=== PATIENT | female | born 1935 | race Caucasian/White ===

== ENCOUNTER → 2016-11-26 | Outpatient (CLI) | payer MEDICARE, BC ==
--- NOTE | 2016-11-26 10:20 | REP ---
LEFT SHOULDER, COMPLETE: 11/26/2016. Clinical history: Left shoulder pain. Comparison: 08/19/2003. Findings AC joint shows narrowing with spur formation inferiorly and superiorly. The degenerative changes are slightly increased on the prior. The glenohumeral joint shows only minimal degenerative changes. There is no subluxation or dislocation. No abnormal soft-tissue calcification. Visualized ribs, scapula, humerus and clavicle without fracture. Impression: 1. 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 Minimal degenerative changes in the glenohumeral joint. No abnormal soft-tissue calcification, subluxation or other acute finding. Signed by Edward Miller MD 11/26/2016 10:24 A
--- NOTE | 2016-11-26 10:39 | REP ---
MRI study left shoulder without contrast: History: Injury 1 month ago. Left shoulder pain. Comparison left shoulder radiographs are from November 26, 2016. Technique: Axial, oblique coronal, and oblique sagittal imaging planes are utilized. T1 and T2-weighted scans were obtained in the usual fashion with and without fat saturation. MRI findings: There is a large glenohumeral joint effusion. There is a subacromial subdeltoid bursal effusion. These two communicates through a large full-thickness complete partially retracted tear of the supraspinatus tendon. There is moderate inferolateral acromion process spurring. Mild AC joint spurring is seen. There is greater tuberosity spurring and subcortical cyst formation is seen in the humeral head. The biceps tendon is in the bony bicipital groove. Increased signal intensity is seen within the tendon at its genu. The subscapularis and infraspinatus tendons appear to be intact. There is some glenohumeral chondromalacia and there is increased signal intensity consistent with fraying of the posterior articular cartilage. Some mild inferior glenoid spurring is noted. Impression: Advanced degenerative findings including a large full-thickness partially retracted complete tear of the supraspinatus tendon. A large joint effusion and subacromial deltoid bursal effusion seen. AC joint osteoarthritis. Glenohumeral spurring. Acromion process spurring. Tendinosis in the biceps tendon. Signed by Girish Mcfarland MD 11/26/2016 02:32 P
== END ==
LOC: M RAD 07:58
PROVIDERS: ATTEND Orthopaedic Surgery
DX: M19.022 Primary osteoarthritis, left elbow (principal)

== ENCOUNTER → 2017-04-08 | Outpatient (REF) | payer MEDICARE, BC ==
[2017-04-08 13:30] LABS: ALBUMIN 3.5 GM/DL (3.2-5.2); ALKALINE PHOSPHATASE 63 U/L (45-117); ALT/SGPT 25 U/L (12-78); ANION GAP 6 MEQ/L (8-16); AST/SGOT 19 U/L (15-37); BILIRUBIN,TOTAL 0.4 MG/DL (0.2-1.0); BLOOD UREA NITROGEN 16 MG/DL (7-18); CALCIUM LEVEL 8.6 MG/DL (8.8-10.2); CARBON DIOXIDE LEVEL 29 MEQ/L (21-32); CHLORIDE LEVEL 108 MEQ/L (98-107); CHOLESTEROL LEVEL 165 MG/DL (<200); CREATININE FOR GFR 0.71 MG/DL (0.55-1.02); GLOMERULAR FILTRATION RATE > 60.0 (>32); GLUCOSE, FASTING 82 MG/DL (83-110); POTASSIUM SERUM 4.2 MEQ/L (3.5-5.1); SODIUM LEVEL 143 MEQ/L (136-145); TRIGLYCERIDES LEVEL 117 MG/DL (<150)
== END ==
LOC: M LABDRAW1 11:42
PROVIDERS: ATTEND Internal Medicine
DX: E78.00 Pure hypercholesterolemia, unspecified (principal); E03.9 Hypothyroidism, unspecified; E55.9 Vitamin D deficiency, unspecified

== ENCOUNTER → 2017-04-28 | Outpatient (REF) | payer MEDICARE, BC | LOC: M LAB REF 09:12 | PROVIDERS: ATTEND Physician Assistant | DX: N39.0 Urinary tract infection, site not specified (principal) ==

== ENCOUNTER → 2017-06-12 | Outpatient (REF) | payer MEDICARE, BC | LOC: M LAB REF 12:00 | PROVIDERS: ATTEND Physician Assistant | DX: R30.0 Dysuria (principal) ==

== ENCOUNTER → 2017-07-10 | Outpatient (REF) | payer MEDICARE, BC | LOC: M LAB REF 17:03 | PROVIDERS: ATTEND Physician Assistant | DX: N39.0 Urinary tract infection, site not specified (principal) ==

== ENCOUNTER → 2017-09-19 | Outpatient (REF) | payer MEDICARE ==
[2017-09-19 16:18] LABS: MEAN CORPUSCULAR HEMOGLOBIN 30.5 pg (27.0-33.0); MEAN CORPUSCULAR HGB CONC 32.8 g/dl (32.0-36.5); MEAN CORPUSCULAR VOLUME 93.1 fl (80.0-96.0); PLATELET COUNT, AUTOMATED 221 10^3/uL (150-450); RED CELL DISTRIBUTION WIDTH 13.1 % (11.5-14.5); WHITE BLOOD COUNT 4.8 10^3/uL (4.0-10.0)
[2017-09-19 16:40] LABS: ALBUMIN 3.6 GM/DL (3.2-5.2); ALBUMIN/GLOBULIN RATIO 1.29 (1.00-1.93); ALKALINE PHOSPHATASE 69 U/L (45-117); ALT/SGPT 25 U/L (12-78); ANION GAP 7 MEQ/L (8-16); AST/SGOT 20 U/L (7-37); BILIRUBIN,TOTAL 0.5 MG/DL (0.2-1.0); BLOOD UREA NITROGEN 24 MG/DL (7-18); CALCIUM LEVEL 8.5 MG/DL (8.8-10.2); CARBON DIOXIDE LEVEL 28 MEQ/L (21-32); CHLORIDE LEVEL 107 MEQ/L (98-107); CREATININE FOR GFR 0.68 MG/DL (0.55-1.02); GLOMERULAR FILTRATION RATE > 60.0 (>32); GLUCOSE, FASTING 85 MG/DL (83-110); POTASSIUM SERUM 4.4 MEQ/L (3.5-5.1); SODIUM LEVEL 142 MEQ/L (136-145); TOTAL PROTEIN 6.4 GM/DL (6.4-8.2)
== END ==
LOC: M LABDRAW1 11:19
PROVIDERS: ATTEND Internal Medicine
DX: E55.9 Vitamin D deficiency, unspecified (principal); M81.0 Age-related osteoporosis without current pathological fracture; Z79.899 Other long term (current) drug therapy

== ENCOUNTER 2017-11-20 12:06 | Emergency (ER) | payer MEDICARE, BC ==
[2017-11-20 13:16] LABS: BASO # 0.1 10^3/uL (0.0-0.2); BASO % 0.4 % (0.0-1.0); EOS # 0.2 10^3/uL (0.0-0.50); EOS % 1.4 % (0.0-3.0); HEMATOCRIT 37.4 % (36.0-47.0); HEMOGLOBIN 12.9 g/dl (12.0-16.0); IMMATURE GRANULOCYTE # 0.1 10^3/uL (0-0); IMMATURE GRANULOCYTE % 0.4 % (0-0); LYMPH # 1.5 10^3/uL (1.5-4.5); LYMPH % 13.1 % (24.0-44.0); MEAN CORPUSCULAR HEMOGLOBIN 31.2 pg (27.0-33.0); MEAN CORPUSCULAR HGB CONC 34.5 g/dl (32.0-36.5); MEAN CORPUSCULAR VOLUME 90.3 fl (80.0-96.0); MONO # 0.6 10^3/uL (0.0-0.8); MONO % 4.9 % (0.0-5.0); NEUTROPHILS # 9.4 10^3/uL (1.8-7.7); NEUTROPHILS % 79.8 % (36.0-66.0); PLATELET COUNT, AUTOMATED 208 10^3/uL (150-450); RED BLOOD COUNT 4.14 10^6/uL (4.00-5.40); RED CELL DISTRIBUTION WIDTH 12.9 % (11.5-14.5); WHITE BLOOD COUNT 11.8 10^3/uL (4.0-10.0)
[2017-11-20] MEDS: NS 1,000 ML IV (13:25)
[2017-11-20 13:29] LABS: INR 0.92; PROTHROMBIN TIME 12.4 SECONDS (12.4-14.5)
[2017-11-20] MEDS: BISACODYL 10 MG SUPP PR (13:40)
[2017-11-20 13:51] LABS: ALBUMIN 3.6 GM/DL (3.2-5.2); ALBUMIN/GLOBULIN RATIO 0.95 (1.00-1.93); ALKALINE PHOSPHATASE 71 U/L (45-117); ALT/SGPT 25 U/L (12-78); ANION GAP 8 MEQ/L (8-16); AST/SGOT 23 U/L (7-37); BILIRUBIN,DIRECT 0.1 MG/DL (0.0-0.2); BILIRUBIN,TOTAL 0.4 MG/DL (0.2-1.0); BLOOD UREA NITROGEN 20 MG/DL (7-18); CALCIUM LEVEL 8.8 MG/DL (8.8-10.2); CARBON DIOXIDE LEVEL 26 MEQ/L (21-32); CHLORIDE LEVEL 105 MEQ/L (98-107); GLOMERULAR FILTRATION RATE > 60.0 (>32); GLUCOSE, FASTING 119 MG/DL (70-100); LIPASE 192 U/L (73-393); SODIUM LEVEL 139 MEQ/L (136-145); TOTAL PROTEIN 7.4 GM/DL (6.4-8.2)
[2017-11-20 14:09] LABS: LACTIC ACID SEPSIS PROTOCOL 2.7 MMOL/L (0.4-2.0)
[2017-11-20] MEDS: LIDOCAINE 2% JELLY 30 ML TOP (14:45)
[2017-11-20] MEDS: SOD POLYSTYRENE SULFONATE SUSP 15 GM/60 ML UD PO (15:49)
== END 2017-11-20 17:30 | disposition home or self-care (01) ==
LOC: M ED 12:06
DX: K59.00 Constipation, unspecified (principal); E78.00 Pure hypercholesterolemia, unspecified; I10 Essential (primary) hypertension; Z87.891 Personal history of nicotine dependence
CPT/HCPCS: 74021

== ENCOUNTER → 2018-01-29 | Outpatient (CLI) | payer MEDICARE, BC | LOC: M WHC 09:31 | DX: Z12.31 Encounter for screening mammogram for malignant neoplasm of breast (principal); Z78.0 Asymptomatic menopausal state; M81.0 Age-related osteoporosis without current pathological fracture; Z80.3 Family history of malignant neoplasm of breast | CPT/HCPCS: 77067 ==

== ENCOUNTER → 2018-03-24 | Outpatient (REF) | payer MEDICARE, BC ==
[2018-03-24 13:36] LABS: TOTAL 25(OH) VITAMIN D 12.7 NG/ML (30.0-100.0)
[2018-03-24 13:43] LABS: ALBUMIN 3.5 GM/DL (3.2-5.2); ALBUMIN/GLOBULIN RATIO 1.21 (1.00-1.93); ALKALINE PHOSPHATASE 67 U/L (45-117); ALT/SGPT 26 U/L (12-78); ANION GAP 5 MEQ/L (8-16); AST/SGOT 21 U/L (7-37); BILIRUBIN,TOTAL 0.3 MG/DL (0.2-1.0); BLOOD UREA NITROGEN 16 MG/DL (7-18); CALCIUM LEVEL 8.4 MG/DL (8.8-10.2); CARBON DIOXIDE LEVEL 27 MEQ/L (21-32); CHLORIDE LEVEL 112 MEQ/L (98-107); CHOLESTEROL LEVEL 172 MG/DL (<200); CHOLESTEROL RISK RATIO 3.071 (<5); CREATININE FOR GFR 0.62 MG/DL (0.55-1.30); GLOMERULAR FILTRATION RATE > 60.0 (>32); GLUCOSE, FASTING 87 MG/DL (70-100); HDL CHOLESTEROL 56 MG/DL (>40); LDL CHOLESTEROL 89.4 MG/DL (<100); MAGNESIUM LEVEL 2.2 MG/DL (1.8-2.4); NON-HDL-C 116 MG/DL; POTASSIUM SERUM 4.4 MEQ/L (3.5-5.1); SODIUM LEVEL 144 MEQ/L (136-145); TOTAL PROTEIN 6.4 GM/DL (6.4-8.2); TRIGLYCERIDES LEVEL 133 MG/DL (<150)
== END ==
LOC: M SFHCPLAZ 09:48
DX: E78.00 Pure hypercholesterolemia, unspecified (principal); I47.1 Supraventricular tachycardia; E03.9 Hypothyroidism, unspecified; E55.9 Vitamin D deficiency, unspecified; Z79.899 Other long term (current) drug therapy
CPT/HCPCS: 83735

== ENCOUNTER → 2018-04-07 | Outpatient (REF) | payer MEDICARE, BC ==
[2018-04-07 18:07] LABS: APPEARANCE, URINE MANUAL HAZY (CLEAR); BILIRUBIN, URINE MANUAL NEGATIVE (NEGATIVE); COLOR, URINE MANUAL LT YELLOW (YELLOW); GLUCOSE, URINE (UA) MANUAL NEGATIVE (NEGATIVE); KETONE, URINE MANUAL NEGATIVE (NEGATIVE); PROTEIN, URINE MANUAL TRACE mg/dL (NEGATIVE); UROBILINOGEN, URINE MANUAL NORMAL (NORMAL)
[2018-04-07 18:08] LABS: BLOOD URINE MANUAL POSITIVE (NEGATIVE); LEUKOCYTE ESTERASE, URINE MAN POSITIVE (NEGATIVE); MICROSCOPIC INDICATED? MAN YES (NO); NITRITE, URINE MANUAL POSITIVE (NEGATIVE)
[2018-04-07 18:09] LABS: WBC, URINE 40-50 /hpf (0-3)
[2018-04-07 18:11] LABS: BACTERIA, URINE MOD AMOUNT; CALCIUM OXALATE CRYSTALS,URINE SMALL AMOUNT /hpf; HYALINE CAST, URINE NONE SEEN /lpf (0-1)
[2018-04-07 18:12] LABS: SQUAMOUS EPITHELIAL CELL URINE NONE SEEN /hpf (SMALL AMT)
[2018-04-07 18:13] LABS: MICROSCOPIC EXAM PERFORMED
== END ==
LOC: M SFHCPLAZ 13:35
DX: R30.0 Dysuria (principal)
CPT/HCPCS: 81015

== ENCOUNTER → 2018-06-13 | Outpatient (CLI) | payer MEDICARE, BC ==
[2018-06-13 13:41] LABS: BASO % 0.4 % (0.0-1.0); EOS % 0.4 % (0.0-3.0); HEMATOCRIT 33.5 % (36.0-47.0); HEMOGLOBIN 11.3 g/dl (12.0-15.5); IMMATURE GRANULOCYTE % 0.3 % (0-3.0); MEAN CORPUSCULAR HEMOGLOBIN 30.7 pg (27.0-33.0); MEAN CORPUSCULAR HGB CONC 33.7 g/dl (32.0-36.5); MONO % 11.3 % (0.0-5.0); NEUTROPHILS # 6.8 10^3/uL (1.8-7.7); NEUTROPHILS % 76.6 % (36.0-66.0); PLATELET COUNT, AUTOMATED 185 10^3/uL (150-450); RED BLOOD COUNT 3.68 10^6/uL (4.00-5.40); RED CELL DISTRIBUTION WIDTH 13.4 % (11.5-14.5); WHITE BLOOD COUNT 8.9 10^3/uL (4.0-10.0)
[2018-06-13 14:21] LABS: ALBUMIN/GLOBULIN RATIO 0.86 (1.00-1.93); ALKALINE PHOSPHATASE 97 U/L (45-117); ALT/SGPT 77 U/L (12-78); ANION GAP 9 MEQ/L (8-16); AST/SGOT 65 U/L (7-37); BILIRUBIN,TOTAL 0.6 MG/DL (0.2-1.0); BLOOD UREA NITROGEN 17 MG/DL (7-18); CALCIUM LEVEL 8.3 MG/DL (8.8-10.2); CARBON DIOXIDE LEVEL 28 MEQ/L (21-32); CHLORIDE LEVEL 99 MEQ/L (98-107); CREATININE FOR GFR 0.83 MG/DL (0.55-1.30); GLOMERULAR FILTRATION RATE > 60.0 (>32); GLUCOSE, FASTING 88 MG/DL (70-100); POTASSIUM SERUM 4.1 MEQ/L (3.5-5.1); SODIUM LEVEL 136 MEQ/L (136-145); TOTAL PROTEIN 6.5 GM/DL (6.4-8.2)
== END ==
LOC: M WUC 10:33
DX: R50.9 Fever, unspecified (principal)
CPT/HCPCS: 80053

== ENCOUNTER 2018-08-01 07:02 | Emergency (ER) | payer MEDICARE, BC ==
[2018-08-01] MEDS: ADACEL/BOOSTRIX VACCINE (DIPHTH/PERTUSS/ACELL/TETANUS)0.5ML SYR (90715) IM (07:51)
== END 2018-08-01 08:23 | disposition home or self-care (01) ==
LOC: M ED 07:02
DX: S01.01XA Laceration without foreign body of scalp, initial encounter (principal); W06.XXXA Fall from bed, initial encounter; Y92.092 Bedroom in other non-institutional residence as the place of occurrence of the external cause; M79.7 Fibromyalgia; E78.9 Disorder of lipoprotein metabolism, unspecified; E07.9 Disorder of thyroid, unspecified; Z86.79 Personal history of other diseases of the circulatory system; Z88.2 Allergy status to sulfonamides; Z79.899 Other long term (current) drug therapy
CPT/HCPCS: 90715

== ENCOUNTER → 2018-10-02 | Outpatient (REF) | payer MEDICARE, BC ==
[2018-10-02 10:36] LABS: HEMATOCRIT 36.9 % (36.0-47.0); HEMOGLOBIN 12.1 g/dl (12.0-15.5); MEAN CORPUSCULAR HGB CONC 32.8 g/dl (32.0-36.5); MEAN CORPUSCULAR VOLUME 91.3 fl (80.0-96.0); PLATELET COUNT, AUTOMATED 202 10^3/uL (150-450); RED BLOOD COUNT 4.04 10^6/uL (4.00-5.40); RED CELL DISTRIBUTION WIDTH 13.2 % (11.5-14.5); WHITE BLOOD COUNT 4.9 10^3/uL (4.0-10.0)
[2018-10-02 10:42] LABS: ALBUMIN 3.6 GM/DL (3.2-5.2); ALBUMIN/GLOBULIN RATIO 1.24 (1.00-1.93); ALKALINE PHOSPHATASE 60 U/L (45-117); ALT/SGPT 27 U/L (12-78); ANION GAP 6 MEQ/L (8-16); AST/SGOT 27 U/L (7-37); BILIRUBIN,TOTAL 0.3 MG/DL (0.2-1.0); BLOOD UREA NITROGEN 19 MG/DL (7-18); CALCIUM LEVEL 8.3 MG/DL (8.8-10.2); CARBON DIOXIDE LEVEL 29 MEQ/L (21-32); CHLORIDE LEVEL 107 MEQ/L (98-107); CREATININE FOR GFR 0.75 MG/DL (0.55-1.30); GLOMERULAR FILTRATION RATE > 60.0 (>32); GLUCOSE, FASTING 89 MG/DL (70-100); MAGNESIUM LEVEL 2.1 MG/DL (1.8-2.4); POTASSIUM SERUM 4.1 MEQ/L (3.5-5.1); SODIUM LEVEL 142 MEQ/L (136-145); TOTAL PROTEIN 6.5 GM/DL (6.4-8.2)
[2018-10-02 12:55] LABS: TOTAL 25(OH) VITAMIN D 29.2 NG/ML (30.0-100.0)
== END ==
LOC: M LABDRAW1 08:03
DX: I47.1 Supraventricular tachycardia (principal); E55.9 Vitamin D deficiency, unspecified; Z51.81 Encounter for therapeutic drug level monitoring; Z79.899 Other long term (current) drug therapy; Z86.010 Personal history of colon polyps
CPT/HCPCS: 83735

== ENCOUNTER → 2018-10-06 | Outpatient (REF) | payer MEDICARE, BC | LOC: M SFHCPLAZ 12:06 | DX: R30.0 Dysuria (principal); Z53.8 Procedure and treatment not carried out for other reasons ==

== ENCOUNTER → 2018-10-07 | Outpatient (REF) | payer MEDICARE, BC ==
[~2018-10-07] MED LIST: AMIT25TA; BACI500O8 TOP; FOSA70TA PO; METO1TAB32; SIMV20TA2; SYNT50TA
[2018-10-07 16:48] LABS: APPEARANCE, URINE HAZY (CLEAR); BACTERIA, URINE AUTO 1+ (NEGATIVE); BILIRUBIN, URINE AUTO NEGATIVE (NEGATIVE); BLOOD, URINE BLOOD NEGATIVE (NEGATIVE); COLOR, URINE YELLOW (YELLOW); GLUCOSE, URINE (UA) AUTO NEGATIVE (NEGATIVE); KETONE, URINE AUTO NEGATIVE (NEGATIVE); LEUKOCYTE ESTERASE, URINE AUTO 2+ (NEGATIVE); NITRITE, URINE AUTO POSITIVE (NEGATIVE); PROTEIN, URINE AUTO NEGATIVE (NEGATIVE); RBC, URINE AUTO 3 /HPF (0-3); SPECIFIC GRAVITY URINE AUTO 1.008 (1.002-1.035); SQUAMOUS EPITHELIAL CELL UR AU 0 /HPF (0-6); UROBILINOGEN, URINE AUTO 0.2 mg/dL (0.0-2.0); WBC, URINE AUTO 10 /HPF (0-3)
== END ==
LOC: M SFHCPLAZ 12:46
PROVIDERS: ATTEND Internal Medicine
DX: R30.0 Dysuria (principal)

== ENCOUNTER 2019-02-15 20:29 | Emergency (ER) | payer MEDICARE, BC ==
[~2019-02-15] VITALS: Ht 165.1 cm; Wt 56.8 kg
[2019-02-15 21:08] LABS: BASO # 0.1 10^3/uL (0.0-0.2); BASO % 0.8 % (0.0-1.0); EOS # 0.4 10^3/uL (0.0-0.50); EOS % 6.2 % (0.0-3.0); HEMATOCRIT 34.1 % (36.0-47.0); HEMOGLOBIN 11.3 g/dl (12.0-15.5); LYMPH # 1.7 10^3/uL (1.5-4.5); LYMPH % 27.3 % (24.0-44.0); MEAN CORPUSCULAR HEMOGLOBIN 30.7 pg (27.0-33.0); MEAN CORPUSCULAR HGB CONC 33.1 g/dl (32.0-36.5); MEAN CORPUSCULAR VOLUME 92.7 fl (80.0-96.0); MONO # 0.6 10^3/uL (0.0-0.8); MONO % 9.3 % (0.0-5.0); NEUTROPHILS # 3.4 10^3/uL (1.8-7.7); NEUTROPHILS % 56.1 % (36.0-66.0); PLATELET COUNT, AUTOMATED 234 10^3/uL (150-450); RED BLOOD COUNT 3.68 10^6/uL (4.00-5.40); WHITE BLOOD COUNT 6.1 10^3/uL (4.0-10.0)
[2019-02-15 21:36] LABS: BLOOD UREA NITROGEN 24 MG/DL (7-18); CALCIUM LEVEL 8.3 MG/DL (8.8-10.2); CARBON DIOXIDE LEVEL 21 MEQ/L (21-32); CHLORIDE LEVEL 111 MEQ/L (98-107); CPK CREATINE PHOSPHOKINASE 110 U/L (26-192); CREATININE FOR GFR 0.79 MG/DL (0.55-1.30); GLOMERULAR FILTRATION RATE > 60.0 (>32); GLUCOSE, FASTING 101 MG/DL (70-100); MB/CK RELATIVE INDEX 2.64 (< OR =4); POTASSIUM SERUM 4.3 MEQ/L (3.5-5.1); SODIUM LEVEL 142 MEQ/L (136-145); TROPONIN I < 0.02 NG/ML (< 0.10)
[2019-02-15] MEDS ORDERED: KETOROLAC 30 MG/ML VIAL (J1885) IV ONE (21:45)
[2019-02-15] MEDS ORDERED: NS 500 ML IV ONE (21:45)
[2019-02-15 21:59] LABS: INR 0.93; PROTHROMBIN TIME 12.6 SECONDS (12.1-14.4)
[2019-02-15 22:00] LABS: PARTIAL THROMBOPLASTIN TIME 38.1 SECONDS (25.4-37.6)
[2019-02-15] MEDS ORDERED: ISOVUE-370 76% 100ML VIAL (Q9967) As Ordered ONE (22:00)
--- NOTE | 2019-02-15 22:43 | REPVR ---
EXAM: CT Angiography Chest With Contrast EXAM DATE/TIME: 02/15/2019 10:04 PM CLINICAL HISTORY: 83 years old, female; Signs and symptoms; Shortness of breath; Additional info: Dysp/cp TECHNIQUE: Imaging protocol: Axial computed tomographic angiography images of the chest with intravenous contrast using CT angiography protocol. Coronal and sagittal reformatted images were created and reviewed. 3D rendering: MIP reconstructed images were created and reviewed. Radiation optimization: All CT scans at this facility use at least one of these dose optimization techniques: automated exposure control; mA and/or kV adjustment per patient size (includes targeted exams where dose is matched to clinical indication); or iterative reconstruction. Contrast material: ISOVUE 370; Contrast volume: 75 ml; Contrast route: IV; COMPARISON: CR CHEST 2 VIEW 06/13/2018 10:39 AM FINDINGS: Pulmonary arteries: There are no pulmonary emboli. Aorta: The aorta demonstrates mild atherosclerotic calcification. There is no aortic dissection or aneurysm. Lungs: There is bibasilar compressive atelectasis. Mild bronchiectasis left lower lobe. Calcified granuloma left lower lobe. Pleural space: Pleural thickening left lower lobe. Bilateral apical pleural-parenchymal scarring. Heart: Normal. No cardiomegaly. No pericardial effusion. Mediastinum: Small sliding hiatal hernia. Lymph nodes: Calcified left hilar lymph nodes. Bones/joints: Deformity right clavicle related to prior healed fracture. The spine demonstrates mild degenerative changes. Osteoporosis. Age-indeterminate compression deformities in the midthoracic spine. Soft tissues: Unremarkable. IMPRESSION: 1. There is no aortic dissection or aneurysm. 2. There are no pulmonary emboli. 3. Prior intrathoracic granulomatous infection. Electronically signed by: Christopher Arroyo On 02/15/2019 22:43:20 PM
[2019-02-15 22:48] LABS: ABG BASE EXCESS -1.5 (-2.0-2.0); ABG HCO3 21.9 MEQ/L (22.0-26.0); ABG O2 SATURATION 97.7 % (95.0-99.0); ABG PARTIAL PRESSURE CO2 32.5 mmHg (35.0-45.0); ABG PARTIAL PRESSURE O2 98.4 mmHg (75.0-100.0); ABG STANDARD HCO3 23.2 MEQ/L (22.0-26.0); ABG TOTAL CO2 22.9 MEQ/L (23.0-31.0); ABG pH (ARTERIAL) 7.447 UNITS (7.350-7.450)
[2019-02-15] MEDS ORDERED: MORPHINE 4 MG/ML 1ML VIAL/SYRINGE (J2270) IV ONE (23:45)
[2019-02-16] MEDS ORDERED: traMADol 50 MG TAB (BULK 4 TAB ED) PO ONE
[2019-02-16 00:12] VITALS: BP 115/60
--- NOTE | 2019-02-16 14:41 | ECGEPIP ---
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
== END 2019-02-16 00:27 | disposition home or self-care (01) ==
LOC: M ED 20:29
DX: R07.89 Other chest pain (principal); E86.0 Dehydration; E03.9 Hypothyroidism, unspecified; I47.1 Supraventricular tachycardia; M79.7 Fibromyalgia; K58.9 Irritable bowel syndrome, unspecified; Z79.890 Hormone replacement therapy; Z79.899 Other long term (current) drug therapy; Z88.1 Allergy status to other antibiotic agents; Z88.2 Allergy status to sulfonamides
CPT/HCPCS: 36600; 71275; 80048; 82550; 82553; 82803; 84484; 85025; 85610; 85730; 93005; 93041; 96361; 96374; 96375; 99285; J1885; J2270; Q9967

== ENCOUNTER → 2019-04-07 | Outpatient (REF) | payer MEDICARE, BC ==
[~2019-04-07] MED LIST changes: -AMIT25TA; +AMIT25TA PO; +BENE1POW5 PO; -METO1TAB32; +METO1TAB32 PO; +MILKSUS3 PO; +MIRA3350 PO; -SIMV20TA2; +SIMV20TA2 PO; -SYNT50TA; +SYNT50TA PO
[2019-04-07 12:17] LABS: ALBUMIN 3.3 GM/DL (3.2-5.2); ALT/SGPT 25 U/L (12-78); BILIRUBIN,TOTAL 0.4 MG/DL (0.2-1.0); BLOOD UREA NITROGEN 20 MG/DL (7-18); CALCIUM LEVEL 8.8 MG/DL (8.8-10.2); CARBON DIOXIDE LEVEL 28 MEQ/L (21-32); CHLORIDE LEVEL 109 MEQ/L (98-107); CHOLESTEROL LEVEL 170 MG/DL (<200); CHOLESTEROL RISK RATIO 2.615 (<5); CREATININE FOR GFR 0.72 MG/DL (0.55-1.30); GLOMERULAR FILTRATION RATE > 60.0 (>32); GLUCOSE, FASTING 82 MG/DL (70-100); HDL CHOLESTEROL 65 MG/DL (>40); LDL CHOLESTEROL 87 MG/DL (<100); MAGNESIUM LEVEL 2.3 MG/DL (1.8-2.4); NON-HDL-C 105 MG/DL; POTASSIUM SERUM 4.3 MEQ/L (3.5-5.1); SODIUM LEVEL 142 MEQ/L (136-145); THYROID STIMULATING HORMONE 0.998 uIU/ML (0.358-3.740); TOTAL PROTEIN 6.5 GM/DL (6.4-8.2); TRIGLYCERIDES LEVEL 92 MG/DL (<150)
== END ==
LOC: M LABDRAW1 09:23
PROVIDERS: ATTEND Internal Medicine
DX: E03.9 Hypothyroidism, unspecified (principal); E78.00 Pure hypercholesterolemia, unspecified

== ENCOUNTER → 2019-06-09 | Outpatient (REF) | payer MEDICARE, BC ==
[~2019-06-09] MED LIST changes: -SIMV20TA2 PO; +SIMV20TA22 PO
[2019-06-09 19:08] LABS: APPEARANCE, URINE HAZY (CLEAR); BACTERIA, URINE AUTO 1+ (NEGATIVE); BILIRUBIN, URINE AUTO NEGATIVE (NEGATIVE); BLOOD, URINE BLOOD NEGATIVE (NEGATIVE); COLOR, URINE YELLOW (YELLOW); GLUCOSE, URINE (UA) AUTO NEGATIVE (NEGATIVE); KETONE, URINE AUTO NEGATIVE (NEGATIVE); LEUKOCYTE ESTERASE, URINE AUTO 2+ (NEGATIVE); MUCUS, URINE SMALL (NEGATIVE); NITRITE, URINE AUTO POSITIVE (NEGATIVE); PROTEIN, URINE AUTO NEGATIVE (NEGATIVE); RBC, URINE AUTO 2 /HPF (0-3); SPECIFIC GRAVITY URINE AUTO 1.009 (1.002-1.035); SQUAMOUS EPITHELIAL CELL UR AU 0 /HPF (0-6); UROBILINOGEN, URINE AUTO 0.2 mg/dL (0.0-2.0); WBC, URINE AUTO 38 /HPF (0-3)
== END ==
LOC: M SFHCPLAZ 15:38
PROVIDERS: ATTEND Internal Medicine
DX: R30.0 Dysuria (principal)
CPT/HCPCS: 81001; 87088; 87186; G0463

== ENCOUNTER → 2019-07-21 | Outpatient (REF) | payer MEDICARE, BC ==
[2019-07-21 11:37] LABS: APPEARANCE, URINE CLEAR (CLEAR); BACTERIA, URINE AUTO 1+ (NEGATIVE); BILIRUBIN, URINE AUTO NEGATIVE (NEGATIVE); BLOOD, URINE BLOOD 1+ (NEGATIVE); COLOR, URINE YELLOW (YELLOW); GLUCOSE, URINE (UA) AUTO NEGATIVE (NEGATIVE); KETONE, URINE AUTO NEGATIVE (NEGATIVE); LEUKOCYTE ESTERASE, URINE AUTO 1+ (NEGATIVE); NITRITE, URINE AUTO POSITIVE (NEGATIVE); PROTEIN, URINE AUTO NEGATIVE (NEGATIVE); RBC, URINE AUTO 2 /HPF (0-3); SPECIFIC GRAVITY URINE AUTO 1.006 (1.002-1.035); SQUAMOUS EPITHELIAL CELL UR AU 0 /HPF (0-6); UROBILINOGEN, URINE AUTO 0.2 mg/dL (0.0-2.0); WBC, URINE AUTO 12 /HPF (0-3)
== END ==
LOC: M SFHCPLAZ 09:16
PROVIDERS: ATTEND Internal Medicine
DX: R30.0 Dysuria (principal)

== ENCOUNTER → 2019-08-10 | Outpatient (REF) | payer MEDICARE, BC ==
[~2019-08-10] MED LIST changes: +SIMV20TA2 PO; -SIMV20TA22 PO
[2019-08-10 20:55] LABS: APPEARANCE, URINE CLOUDY (CLEAR); BACTERIA, URINE AUTO 1+ (NEGATIVE); BILIRUBIN, URINE AUTO NEGATIVE (NEGATIVE); BLOOD, URINE BLOOD 1+ (NEGATIVE); CALCIUM OXALATE CRYSTALS LARGE; COLOR, URINE YELLOW (YELLOW); GLUCOSE, URINE (UA) AUTO NEGATIVE (NEGATIVE); KETONE, URINE AUTO NEGATIVE (NEGATIVE); LEUKOCYTE ESTERASE, URINE AUTO 3+ (NEGATIVE); MUCUS, URINE SMALL (NEGATIVE); NITRITE, URINE AUTO POSITIVE (NEGATIVE); PROTEIN, URINE AUTO NEGATIVE (NEGATIVE); RBC, URINE AUTO 3 /HPF (0-3); SPECIFIC GRAVITY URINE AUTO 1.015 (1.002-1.035); SQUAMOUS EPITHELIAL CELL UR AU 0 /HPF (0-6); UROBILINOGEN, URINE AUTO 0.2 mg/dL (0.0-2.0); WBC, URINE AUTO 156 /HPF (0-3)
== END ==
LOC: M SFHCPLAZ 19:42
PROVIDERS: ATTEND Family Medicine
DX: R30.0 Dysuria (principal)

== ENCOUNTER → 2019-12-09 | Outpatient (CLI) | payer MEDICARE, BC ==
[~2019-12-09] MED LIST changes: -SIMV20TA2 PO; +SIMV20TA22 PO
[2019-12-09 10:40] LABS: HEMATOCRIT 40.3 % (36.0-47.0); HEMOGLOBIN 13.2 g/dl (12.0-15.5); MEAN CORPUSCULAR HEMOGLOBIN 30.3 pg (27.0-33.0); MEAN CORPUSCULAR HGB CONC 32.8 g/dl (32.0-36.5); MEAN CORPUSCULAR VOLUME 92.6 fl (80.0-96.0); PLATELET COUNT, AUTOMATED 199 10^3/uL (150-450); RED BLOOD COUNT 4.35 10^6/uL (4.00-5.40); WHITE BLOOD COUNT 4.7 10^3/uL (4.0-10.0)
[2019-12-09 11:24] LABS: ALBUMIN 3.7 GM/DL (3.2-5.2); ALT/SGPT 30 U/L (12-78); BILIRUBIN,TOTAL 0.5 MG/DL (0.2-1.0); BLOOD UREA NITROGEN 23 MG/DL (7-18); CARBON DIOXIDE LEVEL 29 MEQ/L (21-32); CHLORIDE LEVEL 107 MEQ/L (98-107); CHOLESTEROL LEVEL 201 MG/DL (<200); CHOLESTEROL RISK RATIO 3.045 (<5); CREATININE FOR GFR 0.72 MG/DL (0.55-1.30); GLOMERULAR FILTRATION RATE > 60.0 (>32); GLUCOSE, FASTING 76 MG/DL (70-100); HDL CHOLESTEROL 66 MG/DL (>40); LDL CHOLESTEROL 115 MG/DL (<100); NON-HDL-C 135 MG/DL; POTASSIUM SERUM 4.4 MEQ/L (3.5-5.1); SODIUM LEVEL 141 MEQ/L (136-145); TOTAL 25(OH) VITAMIN D 26.4 NG/ML (30.0-100.0); TOTAL PROTEIN 6.8 GM/DL (6.4-8.2); TRIGLYCERIDES LEVEL 102 MG/DL (<150)
== END ==
LOC: M PLALAB 08:22
PROVIDERS: ATTEND Internal Medicine
DX: M79.7 Fibromyalgia (principal); E78.00 Pure hypercholesterolemia, unspecified; E55.9 Vitamin D deficiency, unspecified; M81.0 Age-related osteoporosis without current pathological fracture; E03.9 Hypothyroidism, unspecified

== ENCOUNTER → 2020-05-09 | Outpatient (REF) | payer MEDICARE, BC ==
[2020-05-09 14:27] LABS: ALBUMIN 3.5 GM/DL (3.2-5.2); ALT/SGPT 32 U/L (12-78); BILIRUBIN,TOTAL 0.4 MG/DL (0.2-1.0); BLOOD UREA NITROGEN 20 MG/DL (7-18); CALCIUM LEVEL 8.8 MG/DL (8.8-10.2); CARBON DIOXIDE LEVEL 27 MEQ/L (21-32); CHLORIDE LEVEL 108 MEQ/L (98-107); CHOLESTEROL LEVEL 186 MG/DL (<200); CHOLESTEROL RISK RATIO 2.695 (<5); CREATININE FOR GFR 0.83 MG/DL (0.55-1.30); GLOMERULAR FILTRATION RATE > 60.0 (>32); GLUCOSE, FASTING 81 MG/DL (70-100); HDL CHOLESTEROL 69 MG/DL (>40); LDL CHOLESTEROL 102 MG/DL (<100); NON-HDL-C 117 MG/DL; POTASSIUM SERUM 4.3 MEQ/L (3.5-5.1); SODIUM LEVEL 141 MEQ/L (136-145); TOTAL PROTEIN 6.8 GM/DL (6.4-8.2); TRIGLYCERIDES LEVEL 75 MG/DL (<150)
== END ==
LOC: M PLALAB 08:21
PROVIDERS: ATTEND Internal Medicine
DX: E78.00 Pure hypercholesterolemia, unspecified (principal)

== ENCOUNTER → 2020-11-14 | Outpatient (REF) | payer MEDICARE, BC ==
[~2020-11-14] MED LIST changes: -AMIT25TA PO; +AMIT25TA17 PO
[2020-11-14 17:30] LABS: HEMATOCRIT 38.1 % (36.0-47.0); HEMOGLOBIN 12.6 g/dl (12.0-15.5); MEAN CORPUSCULAR HEMOGLOBIN 30.5 pg (27.0-33.0); MEAN CORPUSCULAR HGB CONC 33.1 g/dl (32.0-36.5); MEAN CORPUSCULAR VOLUME 92.3 fl (80.0-96.0); PLATELET COUNT, AUTOMATED 205 10^3/uL (150-450); RED BLOOD COUNT 4.13 10^6/uL (4.00-5.40); WHITE BLOOD COUNT 5.8 10^3/uL (4.0-10.0)
[2020-11-14 18:05] LABS: ALBUMIN 3.7 GM/DL (3.2-5.2); ALT/SGPT 28 U/L (12-78); BILIRUBIN,TOTAL 0.5 MG/DL (0.2-1.0); BLOOD UREA NITROGEN 20 MG/DL (7-18); CALCIUM LEVEL 9.7 MG/DL (8.8-10.2); CARBON DIOXIDE LEVEL 33 MEQ/L (21-32); CHLORIDE LEVEL 106 MEQ/L (98-107); GLOMERULAR FILTRATION RATE > 60.0 (>32); GLUCOSE, FASTING 75 MG/DL (70-100); POTASSIUM SERUM 4.7 MEQ/L (3.5-5.1); SODIUM LEVEL 141 MEQ/L (136-145); TOTAL 25(OH) VITAMIN D 24.3 NG/ML (30.0-100.0); TOTAL PROTEIN 6.7 GM/DL (6.4-8.2)
== END ==
LOC: M SFHCPLAZ 15:44
PROVIDERS: ATTEND Internal Medicine
DX: K58.9 Irritable bowel syndrome, unspecified (principal); E78.00 Pure hypercholesterolemia, unspecified; E03.9 Hypothyroidism, unspecified; M81.0 Age-related osteoporosis without current pathological fracture
CPT/HCPCS: 36415; 80053; 82306; 84443; 85027; G0463

== ENCOUNTER → 2021-01-16 | Outpatient (REF) | payer MEDICARE, BC ==
[2021-01-16 18:25] LABS: APPEARANCE, URINE MANUAL HAZY (CLEAR); COLOR, URINE MANUAL LT YELLOW (YELLOW)
[2021-01-16 18:26] LABS: BILIRUBIN, URINE MANUAL NEGATIVE (NEGATIVE); BLOOD URINE MANUAL NEGATIVE (NEGATIVE); GLUCOSE, URINE (UA) MANUAL NEGATIVE (NEGATIVE); KETONE, URINE MANUAL NEGATIVE (NEGATIVE); LEUKOCYTE ESTERASE, URINE MAN POSITIVE (NEGATIVE); NITRITE, URINE MANUAL POSITIVE (NEGATIVE); PH,URINE MAN 5.5 UNITS (5.0 - 7.0); PROTEIN, URINE MANUAL NEGATIVE (NEGATIVE); SPECIFIC GRAVITY,URINE MANUAL 1.025 (1.002-1.035); UROBILINOGEN, URINE MANUAL NORMAL (NORMAL)
[2021-01-16 20:00] LABS: BACTERIA, URINE LARGE AMOUNT; RBC, URINE 0-1 /hpf (0-3); SQUAMOUS EPITHELIAL CELL URINE SMALL AMOUNT /hpf (SMALL AMT)
[2021-01-16 20:01] LABS: HYALINE CAST, URINE NONE SEEN /lpf (0-1)
== END ==
LOC: M SFHCPLAZ 16:56
PROVIDERS: ATTEND Internal Medicine
DX: R30.0 Dysuria (principal)

== ENCOUNTER → 2021-09-27 | Outpatient (CLI) | payer MEDICARE, BC ==
--- NOTE | 2021-09-27 14:14 | REPVR ---
PROCEDURE INFORMATION: Exam: CT Head Without Contrast Exam date and time: 09/27/2021 10:04 AM Age: 86 years old Clinical indication: Injury or trauma; Fall; Swelling (edema); Additional info: Head injury TECHNIQUE: Imaging protocol: Computed tomography of the head without contrast. Radiation optimization: All CT scans at this facility use at least one of these dose optimization techniques: automated exposure control; mA and/or kV adjustment per patient size (includes targeted exams where dose is matched to clinical indication); or iterative reconstruction. COMPARISON: CT Head without contrast 08/01/2018 7:10 AM FINDINGS: Brain: There is no acute intracranial hemorrhage or mass effect. Moderate diffuse volume loss is within the range of normal for patient age. There are small vessel ischemic changes within the periventricular and subcortical white matter, but the normal lovelace-white matter delineation is maintained. Cerebral ventricles: No ventriculomegaly. Paranasal sinuses: There is polypoid mucosal thickening within the right sphenoid sinus. Mastoid air cells: Visualized mastoid air cells are well aerated. Bones/joints: Unremarkable. No acute fracture. Soft tissues: Unremarkable. IMPRESSION: No acute hemorrhage or calvarial fracture. Electronically signed by: Yany Anthony On 09/27/2021 14:13:57 PM
== END ==
LOC: M PLAIMG 09:45
PROVIDERS: ATTEND Internal Medicine
DX: S09.90XA Unspecified injury of head, initial encounter (principal)

== ENCOUNTER 2021-10-08 20:48 | Emergency (ER) | payer MEDICARE, BC ==
[~2021-10-08] VITALS: Ht 165.1 cm; Wt 57.7 kg
[2021-10-08] MEDS ORDERED: MAGN400C PO (21:04)
[2021-10-08] MEDS ORDERED: IBUPROFEN 600MG TAB PO ONE (21:55)
[2021-10-09 00:16] VITALS: BP 125/62
== END 2021-10-09 00:18 | disposition home or self-care (01) ==
LOC: M ED 20:48
DX: S80.12XA Contusion of left lower leg, initial encounter (principal); W01.0XXA Fall on same level from slipping, tripping and stumbling without subsequent striking against object, initial encounter; Y92.22 Religious institution as the place of occurrence of the external cause; I47.1 Supraventricular tachycardia; E07.9 Disorder of thyroid, unspecified; E78.9 Disorder of lipoprotein metabolism, unspecified; E55.9 Vitamin D deficiency, unspecified; M81.0 Age-related osteoporosis without current pathological fracture; Z79.899 Other long term (current) drug therapy; Z79.890 Hormone replacement therapy; Z88.1 Allergy status to other antibiotic agents; Z88.2 Allergy status to sulfonamides

== ENCOUNTER → 2021-10-11 | Outpatient (CLI) | payer MEDICARE, BC ==
[~2021-10-11] MED LIST changes: +MAGN400C PO
[2021-10-11 14:24] LABS: ALBUMIN 3.7 GM/DL (3.2-5.2); ALT/SGPT 27 U/L (12-78); BILIRUBIN,TOTAL 0.3 MG/DL (0.2-1.0); BLOOD UREA NITROGEN 18 MG/DL (7-18); CALCIUM LEVEL 9.1 MG/DL (8.8-10.2); CARBON DIOXIDE LEVEL 29 MEQ/L (21-32); CHLORIDE LEVEL 108 MEQ/L (98-107); CHOLESTEROL LEVEL 189 MG/DL (<200); CREATININE FOR GFR 0.69 MG/DL (0.55-1.30); GLOMERULAR FILTRATION RATE > 60.0 (>32); GLUCOSE, FASTING 94 MG/DL (70-100); HDL CHOLESTEROL 70 MG/DL (>40); LDL CHOLESTEROL 97 MG/DL (<100); NON-HDL-C 119 MG/DL; POTASSIUM SERUM 4.6 MEQ/L (3.5-5.1); SODIUM LEVEL 141 MEQ/L (136-145); TOTAL PROTEIN 7.1 GM/DL (6.4-8.2); TRIGLYCERIDES LEVEL 110 MG/DL (<150)
== END ==
LOC: M PLALAB 11:39
PROVIDERS: ATTEND Internal Medicine
DX: E78.00 Pure hypercholesterolemia, unspecified (principal); E03.9 Hypothyroidism, unspecified

== ENCOUNTER → 2022-04-11 | Outpatient (REF) | payer MEDICARE, BC | LOC: M SFHCPLAZ 14:41 | PROVIDERS: ATTEND Internal Medicine | DX: E78.00 Pure hypercholesterolemia, unspecified (principal); E55.9 Vitamin D deficiency, unspecified; Z86.010 Personal history of colon polyps; Z11.59 Encounter for screening for other viral diseases ==

== ENCOUNTER → 2022-04-11 | Outpatient (CLI) | payer MEDICARE, BC ==
[2022-04-11 18:08] LABS: BASO # 0.1 10^3/uL (0.0-0.2); BASO % 1.1 % (0.0-1.0); EOS # 0.3 10^3/uL (0.0-0.5); EOS % 5.5 % (0.0-3.0); HEMATOCRIT 38.4 % (36.0-47.0); HEMOGLOBIN 12.4 g/dl (12.0-15.5); LYMPH # 1.5 10^3/uL (1.5-5.0); LYMPH % 30.5 % (24.0-44.0); MEAN CORPUSCULAR HEMOGLOBIN 29.8 pg (27.0-33.0); MEAN CORPUSCULAR HGB CONC 32.3 g/dl (32.0-36.5); MEAN CORPUSCULAR VOLUME 92.3 fl (80.0-96.0); MONO # 0.4 10^3/uL (0.0-0.8); MONO % 8.4 % (2.0-8.0); NEUTROPHILS # 2.6 10^3/uL (1.5-8.5); NEUTROPHILS % 54.3 % (36.0-66.0); PLATELET COUNT, AUTOMATED 212 10^3/uL (150-450); RED BLOOD COUNT 4.16 10^6/uL (4.00-5.40); WHITE BLOOD COUNT 4.8 10^3/uL (4.0-10.0)
[2022-04-11 18:35] LABS: ALBUMIN 3.6 GM/DL (3.2-5.2); ALT/SGPT 28 U/L (12-78); BILIRUBIN,TOTAL 0.3 MG/DL (0.2-1.0); BLOOD UREA NITROGEN 23 MG/DL (7-18); CALCIUM LEVEL 9.4 MG/DL (8.8-10.2); CARBON DIOXIDE LEVEL 28 MEQ/L (21-32); CHLORIDE LEVEL 109 MEQ/L (98-107); CREATININE FOR GFR 0.78 MG/DL (0.55-1.30); GLOMERULAR FILTRATION RATE > 60.0 (>32); GLUCOSE, FASTING 99 MG/DL (70-100); POTASSIUM SERUM 4.5 MEQ/L (3.5-5.1); SODIUM LEVEL 143 MEQ/L (136-145); TOTAL PROTEIN 6.6 GM/DL (6.4-8.2)
[2022-04-11 18:46] LABS: TOTAL 25(OH) VITAMIN D 30.4 NG/ML (30.0-100.0)
== END ==
LOC: M PLALAB 15:16
PROVIDERS: ATTEND Internal Medicine
DX: E78.00 Pure hypercholesterolemia, unspecified (principal); E55.9 Vitamin D deficiency, unspecified; Z86.010 Personal history of colon polyps; Z11.59 Encounter for screening for other viral diseases; Z79.899 Other long term (current) drug therapy

== ENCOUNTER → 2022-08-03 | Outpatient (CLI) | payer MEDICARE, BC ==
[~2022-08-03] MED LIST changes: +ALEN70TA87 PO; -FOSA70TA PO
[2022-08-03 13:46] LABS: HEMATOCRIT 39.7 % (36.0-47.0); HEMOGLOBIN 12.7 g/dl (12.0-15.5); RED BLOOD COUNT 4.21 10^6/uL (4.00-5.40)
[2022-08-03 13:47] LABS: MEAN CORPUSCULAR HEMOGLOBIN 30.2 pg (27.0-33.0); MEAN CORPUSCULAR VOLUME 94.3 fl (80.0-96.0); PLATELET COUNT, AUTOMATED 209 10^3/uL (150-450)
[2022-08-03 14:59] LABS: ALBUMIN 3.8 GM/DL (3.2-5.2); BLOOD UREA NITROGEN 17 MG/DL (7-18); CALCIUM LEVEL 9.2 MG/DL (8.8-10.2); CARBON DIOXIDE LEVEL 28 MEQ/L (21-32); CHLORIDE LEVEL 107 MEQ/L (98-107); CREATININE FOR GFR 0.65 MG/DL (0.55-1.30); FERRITIN 63 NG/ML (8-252); FREE T4 0.85 NG/DL (0.76-1.46); GLOMERULAR FILTRATION RATE > 60.0 (>32); GLUCOSE, FASTING 84 MG/DL (70-100); MAGNESIUM LEVEL 2.4 MG/DL (1.8-2.4); PHOSPHORUS LEVEL 3.5 MG/DL (2.5-4.9); POTASSIUM SERUM 4.2 MEQ/L (3.5-5.1); SODIUM LEVEL 141 MEQ/L (136-145)
[2022-08-03 15:21] LABS: PTH INTACT 61.4 PG/ML (18.5-88.0)
[2022-08-03 15:22] LABS: VITAMIN B12 LEVEL 421 PG/ML (247-911)
[2022-08-03 15:58] LABS: HEMOGLOBIN A1c 5.5 %
== END ==
LOC: M PLALAB 11:17
PROVIDERS: ATTEND Family Medicine
DX: M85.871 Other specified disorders of bone density and structure, right ankle and foot (principal); M85.872 Other specified disorders of bone density and structure, left ankle and foot; E55.9 Vitamin D deficiency, unspecified; K59.01 Slow transit constipation; E03.9 Hypothyroidism, unspecified; R73.01 Impaired fasting glucose; M21.6X9 Other acquired deformities of unspecified foot; I47.1 Supraventricular tachycardia

== ENCOUNTER → 2022-08-22 | Outpatient (REF) | payer MEDICARE, BC ==
[2022-08-22 13:41] LABS: APPEARANCE, URINE MANUAL HAZY (CLEAR); BILIRUBIN, URINE MANUAL NEGATIVE (NEGATIVE); COLOR, URINE MANUAL LT YELLOW (YELLOW); GLUCOSE, URINE (UA) MANUAL NEGATIVE (NEGATIVE); KETONE, URINE MANUAL NEGATIVE (NEGATIVE); PH,URINE MAN 7.5 UNITS (5.0 - 7.0); PROTEIN, URINE MANUAL NEGATIVE (NEGATIVE); SPECIFIC GRAVITY,URINE MANUAL 1.005 (1.002-1.035); UROBILINOGEN, URINE MANUAL NORMAL (NORMAL)
[2022-08-22 13:42] LABS: BLOOD URINE MANUAL POSITIVE (NEGATIVE); LEUKOCYTE ESTERASE, URINE MAN POSITIVE (NEGATIVE); NITRITE, URINE MANUAL NEGATIVE (NEGATIVE)
[2022-08-22 13:55] LABS: BACTERIA, URINE LARGE AMOUNT; HYALINE CAST, URINE NONE SEEN /lpf (0-1); RBC, URINE 0-1 /hpf (0-3); SQUAMOUS EPITHELIAL CELL URINE SMALL AMOUNT /hpf (SMALL AMT)
== END ==
LOC: M SFHCPLAZ 13:16
PROVIDERS: ATTEND Physician Assistant
DX: R39.9 Unspecified symptoms and signs involving the genitourinary system (principal)

== ENCOUNTER → 2022-09-12 | Outpatient (REF) | payer MEDICARE, BC | LOC: M SFHCPLAZ 16:53 | PROVIDERS: ATTEND Physician Assistant | DX: N30.01 Acute cystitis with hematuria (principal) ==

== ENCOUNTER → 2022-09-21 | Outpatient (REF) | payer MEDICARE, BC | LOC: M LAB REF 20:47 | PROVIDERS: ATTEND Physician Assistant | DX: R30.0 Dysuria (principal) ==

== ENCOUNTER → 2022-10-11 | Outpatient (REF) | payer MEDICARE, BC | LOC: M SFHCPLAZ 17:17 | PROVIDERS: ATTEND Physician Assistant | DX: R39.9 Unspecified symptoms and signs involving the genitourinary system (principal); N30.01 Acute cystitis with hematuria ==

== ENCOUNTER → 2022-10-31 | Outpatient (REF) | payer MEDICARE, BC ==
[2022-10-31 18:51] LABS: APPEARANCE, URINE MANUAL CLEAR (CLEAR); COLOR, URINE MANUAL YELLOW (YELLOW)
[2022-10-31 18:54] LABS: BILIRUBIN, URINE MANUAL NEGATIVE (NEGATIVE); BLOOD URINE MANUAL POSITIVE (NEGATIVE); GLUCOSE, URINE (UA) MANUAL NEGATIVE (NEGATIVE); KETONE, URINE MANUAL NEGATIVE (NEGATIVE); LEUKOCYTE ESTERASE, URINE MAN POSITIVE (NEGATIVE); NITRITE, URINE MANUAL NEGATIVE (NEGATIVE); PROTEIN, URINE MANUAL NEGATIVE (NEGATIVE); UROBILINOGEN, URINE MANUAL NORMAL (NORMAL)
[2022-10-31 19:16] LABS: BACTERIA, URINE SMALL AMOUNT; HYALINE CAST, URINE NONE SEEN /lpf (0-1); RBC, URINE NONE SEEN /hpf (0-3); SQUAMOUS EPITHELIAL CELL URINE NONE SEEN /hpf (SMALL AMT)
== END ==
LOC: M SFHCPLAZ 17:12
PROVIDERS: ATTEND Physician Assistant Medical
DX: N30.90 Cystitis, unspecified without hematuria (principal)

== ENCOUNTER → 2022-12-13 | Outpatient (REF) | payer MEDICARE, BC ==
[2022-12-13 15:31] LABS: APPEARANCE, URINE CLOUDY (CLEAR); BACTERIA, URINE AUTO 1+ (NEGATIVE); BILIRUBIN, URINE AUTO NEGATIVE (NEGATIVE); BLOOD, URINE BLOOD 1+ (NEGATIVE); COLOR, URINE YELLOW (YELLOW); GLUCOSE, URINE (UA) AUTO NEGATIVE (NEGATIVE); KETONE, URINE AUTO NEGATIVE (NEGATIVE); LEUKOCYTE ESTERASE, URINE AUTO 3+ (NEGATIVE); NITRITE, URINE AUTO NEGATIVE (NEGATIVE); PROTEIN, URINE AUTO NEGATIVE (NEGATIVE); RBC, URINE AUTO 14 /HPF (0-3); SPECIFIC GRAVITY URINE AUTO 1.004 (1.002-1.035); SQUAMOUS EPITHELIAL CELL UR AU 0 /HPF (0-6); UROBILINOGEN, URINE AUTO 0.2 mg/dL (0.0-2.0); WBC, URINE AUTO TNTC /HPF (0-3)
== END ==
LOC: M SFHCPLAZ 15:09
PROVIDERS: ATTEND Family Medicine
DX: N39.0 Urinary tract infection, site not specified (principal)

== ENCOUNTER → 2022-12-18 | Outpatient (CLI) | payer MEDICARE, BC | LOC: M PLAIMG 14:16 | PROVIDERS: ATTEND Family Medicine | DX: K59.01 Slow transit constipation (principal); M85.88 Other specified disorders of bone density and structure, other site ==

== ENCOUNTER → 2023-01-23 | Outpatient (CLI) | payer MEDICARE, BC | LOC: M WHC 15:07 | PROVIDERS: ATTEND Family Medicine | DX: N39.0 Urinary tract infection, site not specified (principal) ==

== ENCOUNTER → 2023-05-02 | Outpatient (CLI) | payer MEDICARE, BC ==
[2023-05-02 11:01] LABS: BASO # 0.1 10^3/uL (0.0-0.2); BASO % 1.1 % (0.0-1.0); EOS # 0.3 10^3/uL (0.0-0.5); EOS % 6.4 % (0.0-3.0); HEMATOCRIT 38.6 % (36.0-47.0); HEMOGLOBIN 12.3 g/dl (12.0-15.5); LYMPH # 1.5 10^3/uL (1.5-5.0); LYMPH % 31.9 % (24.0-44.0); MEAN CORPUSCULAR HEMOGLOBIN 30.7 pg (27.0-33.0); MEAN CORPUSCULAR HGB CONC 31.9 g/dl (32.0-36.5); MEAN CORPUSCULAR VOLUME 96.3 fl (80.0-96.0); MONO # 0.3 10^3/uL (0.0-0.8); NEUTROPHILS # 2.4 10^3/uL (1.5-8.5); NEUTROPHILS % 53.4 % (36.0-66.0); PLATELET COUNT, AUTOMATED 187 10^3/uL (150-450); RED BLOOD COUNT 4.01 10^6/uL (4.00-5.40); WHITE BLOOD COUNT 4.6 10^3/uL (4.0-10.0)
[2023-05-02 11:16] LABS: ALBUMIN 3.6 G/DL (3.2-5.2); ALKALINE PHOSPHATASE 58 U/L (46-116); ALT/SGPT 28 U/L (7.0-40); AST/SGOT 30 U/L (<34); BILIRUBIN,TOTAL 0.6 MG/DL (0.3-1.2); BLOOD UREA NITROGEN 22 MG/DL (9-23); CALCIUM LEVEL 9.4 MG/DL (8.3-10.6); CARBON DIOXIDE LEVEL 28 MMOL/L (20-31); CHLORIDE LEVEL 104 MMOL/L (98-107); CHOLESTEROL LEVEL 171 MG/DL (<200); CHOLESTEROL RISK RATIO 2.83 (<5); CREATININE FOR GFR 0.64 MG/DL (0.55-1.30); GLOMERULAR FILTRATION RATE > 60.0 (>32); GLUCOSE, FASTING 76 MG/DL (74-106); HDL CHOLESTEROL 60.3 MG/DL (>40); LDL CHOLESTEROL 96.1 MG/DL (<100); NON-HDL-C 110.7 MG/DL; POTASSIUM SERUM 4.3 MMOL/L (3.5-5.1); SODIUM LEVEL 140 MMOL/L (136-145); TOTAL PROTEIN 6.4 G/DL (5.7-8.2); TRIGLYCERIDES LEVEL 73 MG/DL (<150)
[2023-05-02 11:19] LABS: PTH INTACT 74.4 PG/ML (18.5-88.0)
[2023-05-02 11:21] LABS: TOTAL 25(OH) VITAMIN D 48.1 NG/ML (20.0-100.0)
[2023-05-02 11:23] LABS: FERRITIN 87.9 NG/ML (7.3-270.7); FREE T4 0.97 NG/DL (0.89-1.76); HEMOGLOBIN A1c 5.4 % (4.0-6.0)
== END ==
LOC: M PLALAB 08:43
PROVIDERS: ATTEND Family Medicine
DX: E55.9 Vitamin D deficiency, unspecified (principal); D75.89 Other specified diseases of blood and blood-forming organs; E03.9 Hypothyroidism, unspecified; R73.01 Impaired fasting glucose; E78.2 Mixed hyperlipidemia; M81.0 Age-related osteoporosis without current pathological fracture

== ENCOUNTER → 2023-05-15 | Outpatient (CLI) | payer MEDICARE, BC | LOC: M WHC 10:44 | PROVIDERS: ATTEND Family Medicine | DX: M81.0 Age-related osteoporosis without current pathological fracture (principal) ==